=== PATIENT | male | born 1955 | race Caucasian/White ===

== ENCOUNTER 2023-10-08 10:12 | Outpatient (CLI) | payer MEDICARE, OTHER, SELFPAY ==
[2023-10-08 11:10] LABS: Alanine Aminotransferase 48 U/L (6-50); Albumin Level 4.7 g/dL (3.5-5.1); Alkaline Phosphatase 83 U/L (38-126); Anion Gap 9 mmol/L (8-16); Aspartate Amino Transferase 43 U/L (17-59); Bilirubin,Total 0.9 mg/dL (0.2-1.3); Blood Urea Nitrogen 22 mg/dL (9-20); Calcium 9.8 mg/dL (8.4-10.2); Carbon Dioxide 26 mmol/L (22-30); Chloride 104 mmol/L (98-107); Cholesterol 195 mg/dL (0-200); Estimated Glomerular Filt Rate > 60; Glucose 103 mg/dL (65-110); HDL Direct 42 mg/dL; Potassium 3.7 mmol/L (3.4-5.0); Sodium 139 mmol/L (137-145); Triglycerides 209 mg/dL (<150)
[2023-10-08 11:14] LABS: Hemoglobin A1C 5.7 % (<5.7)
[2023-10-08 11:38] LABS: Prostate Specific Antigen 0.4 ng/mL (< OR = 4.0)
[2023-10-08 11:48] LABS: LDL Cholesterol Direct 115 mg/dL
== END 2023-10-08 10:13 | disposition home or self-care (01) ==
PROVIDERS: PCP Family Medicine; Visit Provider Physician Assistant
DX: Z13.1 Encounter for screening for diabetes mellitus (principal); E11.9 Type 2 diabetes mellitus without complications; Z13.220 Encounter for screening for lipoid disorders; Z12.5 Encounter for screening for malignant neoplasm of prostate
CPT/HCPCS: 36415; 80053; 80061; 83036; 84153; G0103

== ENCOUNTER 2023-10-31 07:00 | Outpatient (NON) | payer MEDICARE, OTHER, SELFPAY | END 2023-10-31 07:01 | disposition home or self-care (01) | LOC: ANHLAB 11-01 10:01 | PROVIDERS: PCP Family Medicine; Visit Provider Internal Medicine Gastroenterology | DX: Z12.11 Encounter for screening for malignant neoplasm of colon (principal) | CPT/HCPCS: 88305 ==

== ENCOUNTER 2023-10-31 07:27 | Day surgery (SDC) | payer MEDICARE, OTHER, SELFPAY ==
[2023-10-09 08:40] VITALS: BMI 27.6
[2023-10-18 09:20] VITALS: BMI 27.3
--- NOTE | 2023-10-31 07:38 | P.PNAN_ITS ---
Anes - Initial Pre Proc Eval Procedure: Operation Date: 10/31/23 09:30 Proposed Procedures p Diagnostic Colonoscopy - Ubaldo Fuentes MD Date/Time: 10/31/23 07:38 Surgeon: Ubaldo Fuentes MD Pre Op Diagnosis: Family History of Colon Cancer Patient Data Age: 68 Gender: M Height: 1.8 m Weight: 89 kg Allergies Allergy/AdvReac Type Severity Reaction Status Date / Time No Known Allergies Allergy Verified 10/31/23 08:07 Home Medications Medication Instructions Recorded Confirmed Type lisinopril 20 See Rx Instructions .Route 08/23/22 10/18/23 Rx mg-hydrochlorothiazide 12.5 mg .COMPLEX #180 tabs tablet simvastatin 20 mg tablet See Rx Instructions .Route 08/23/22 10/18/23 Rx .COMPLEX #90 tabs meloxicam 15 mg tablet 15 mg PO DAILY #14 tabs 10/08/23 10/18/23 Rx Patient hx anesthesia problems: none Family hx anesthesia problems: none Results Review: All pre-operative results and documents have been reviewed as part of the pre- operative evaluation. [facility] Past Medical History Medical History (Updated 10/31/23 @ 09:24 by Ubaldo Fuentes MD) Acute pharyngitis (~05/2018) Deviated nasal septum GERD (gastroesophageal reflux disease) Herpes zoster with complication Hypercholesterolemia Hypertension Screening for malignant neoplasm of colon Sore throat (~05/2018) Surgical History Surgical History History of knee surgery Right knee 1981 & Left knee 2006 Family History Family History Father Heart disease Alzheimer disease CHF (congestive heart failure) Mother Carcinoma of colon, Onset Age: 80 Cerebrovascular accident Other Family history of coronary artery disease Social History Social History Smoking status: Never smoker Second hand tobacco smoke exposure: No Alcohol intake: never Substance use: never Substance use type: does not use Lack of Transportation: No Lack of Food: Never True Current Housing: I Have Housing Concerned About Future Housing: No Difficulty Paying Gas/Electric Bills: No Difficulty Paying for Meds: No Currently Unemployed: No Education: High School Diploma/GED Difficulty w/ Childcare or Family Care: No Living arrangements: alone Gender identity (if verbalized by the patient): Male Spiritual care concerns: No Agree to blood products: Yes Anes - Eval Final PreProcedure Day of Procedure 10/31/23 07:38 Patient weight: overweight Heart: regular rate and rhythm Lungs: clear to auscultation Airway: Mallampati scale class II Neurological: alert and oriented Last oral intake: >/= 8 hours ASA classification: II Emergent: no Anesthetic plan: proceed Anesthesia type and monitoring: general GIVS and standard monitoring Results Review: All pre-operative results and documents have been reviewed as part of the pre- operative evaluation. Informed Consent: The patient's anesthetic plan and its attendant risks and benefits were discussed with the patient/family/POA. Questions were solicited and answers provided to the satisfaction of the patient/family/POA.
[2023-10-31 08:16] VITALS: BP 142/112; PULSE 102; RESP 20; TEMP 36.7; O2SAT 99; BMI 27.4
[2023-10-31] MEDS: LACTATED RINGERS 1,000 ML 150 ML IV CONT (08:27)
--- NOTE | 2023-10-31 09:21 | PM.HPGS ---
History of Present Illness History of Present Illness Consent: Risks, benefits, and alternatives have been discussed and questions answered. Patient agrees to proceed with procedure. Chief complaint: Family History of Colon Cancer Narrative: Mil Houser is a 68 year old male presents for screening colonoscopy. Patient's current weight appetite and bowel movements are normal. Patient denies abdominal pain. He has had no bleeding. Family history is significant that his mother was identified as having colon cancer within the last 4 years. Review of Systems Review of Systems: Review of systems noncontributory. [facility] Past Medical History Medical History (Updated 10/31/23 @ 09:24 by Ubaldo Fuentes MD) Acute pharyngitis (~05/2018) Deviated nasal septum GERD (gastroesophageal reflux disease) Herpes zoster with complication Hypercholesterolemia Hypertension Screening for malignant neoplasm of colon Sore throat (~05/2018) Surgical History Surgical History History of knee surgery Right knee 1981 & Left knee 2006 Family History Family History Father Heart disease Alzheimer disease CHF (congestive heart failure) Mother Carcinoma of colon, Onset Age: 80 Cerebrovascular accident Other Family history of coronary artery disease Social History Social History Smoking status: Never smoker Second hand tobacco smoke exposure: No Alcohol intake: never Substance use: never Substance use type: does not use Lack of Transportation: No Lack of Food: Never True Current Housing: I Have Housing Concerned About Future Housing: No Difficulty Paying Gas/Electric Bills: No Difficulty Paying for Meds: No Currently Unemployed: No Education: High School Diploma/GED Difficulty w/ Childcare or Family Care: No Living arrangements: alone Gender identity (if verbalized by the patient): Male Spiritual care concerns: No Agree to blood products: Yes Meds Home Medications and Allergies Home Medications Medication Instructions Recorded Confirmed Type lisinopril 20 See Rx Instructions .Route 08/23/22 10/18/23 Rx mg-hydrochlorothiazide 12.5 mg .COMPLEX #180 tabs tablet simvastatin 20 mg tablet See Rx Instructions .Route 08/23/22 10/18/23 Rx .COMPLEX #90 tabs meloxicam 15 mg tablet 15 mg PO DAILY #14 tabs 10/08/23 10/18/23 Rx Allergies Allergy/AdvReac Type Severity Reaction Status Date / Time No Known Allergies Allergy Verified 10/31/23 08:07 Vital Signs Vital Signs - 24 hr 10/31/23 08:16 Temperature 98.1 F Pulse Rate 102 H Respiratory Rate 20 Blood Pressure 142/112 H Pulse Oximetry 99 Oxygen Delivery Room Air Exam Narrative: Physical exam reveals patient to be alert. Vital signs stable. HEENT exam is unremarkable. Patient is anicteric. Lungs are clear to auscultation and to percussion. Heart is without murmur or extra sounds. Abdomen sounds are present. Abdomen is soft. Nontender with no organomegaly. Digital external rectal exam normal. Assessment and Plan Assessment and plan (1) Family history of colon cancer in mother: Code(s): Z80.0 - Family history of malignant neoplasm of digestive organs Status: Acute Assessment and Plan: Is been identified as having colon cancer. Plan for surveillance colonoscopy at 5 year intervals.
[2023-10-31] MEDS: SIMETHICONE ORAL SUSPENSION 20 MG/0.3 ML 30 ML BOTTLE 0.6 ML IRRIGATION (09:41)
[2023-10-31 09:54] VITALS: BP 106/79; PULSE 88; RESP 20; O2SAT 98
[2023-10-31 10:04] VITALS: BP 104/70; PULSE 81; RESP 18; O2SAT 97
[2023-10-31 10:14] VITALS: BP 107/88; PULSE 76; RESP 20; O2SAT 98
--- NOTE | 2023-10-31 11:11 | WPDANESPN ---
Anes - Prog Note Post-Op Date/Time: 10/31/23 11:11 Cardiovascular status: normal Respiratory status: normal Airway patency: baseline Mental status: baseline Post-Op hydration status: normal Vital Signs: Last Vital Signs Temp 36.7 C 10/31/23 08:16 Pulse 76 10/31/23 10:14 Resp 20 10/31/23 10:14 BP 107/88 10/31/23 10:14 Pulse Ox 98 10/31/23 10:14 O2 Del Method Room Air 10/31/23 10:14 Pain Score (VAS): 0 I/O: Intake & Output 10/30/23 10/31/23 10/31/23 23:59 07:59 15:59 Intake Total 450 Balance 450 Post-procedural complaints: none Patient Feedback: Patient satisfied with anesthetic care. Other Findings: Patient vital signs back to baseline. Patient denies nausea and vomiting. Patient's pain under control. Patient OK for discharge.
== END 2023-10-31 10:21 | disposition home or self-care (01) ==
PROVIDERS: PCP Family Medicine; Referring Provider Physician Assistant; Visit Provider Internal Medicine Gastroenterology
PROC: 0DJD8ZZ Inspection of Lower Intestinal Tract, Via Natural or Artificial Opening Endoscopic (ICD-10-PCS; CPT 45378; principal; 2023-10-31 09:30)
DX: Z80.0 Family history of malignant neoplasm of digestive organs (principal); D12.5 Benign neoplasm of sigmoid colon; K64.8 Other hemorrhoids
CPT/HCPCS: 45385

== ENCOUNTER 2024-10-12 10:34 | Outpatient (CLI) | payer MEDICARE, OTHER, SELFPAY ==
[2024-10-12 17:02] LABS: Hemoglobin A1C 5.5 % (<5.7)
[2024-10-12 18:49] LABS: Alanine Aminotransferase 28 U/L (6-50); Albumin Level 4.7 g/dL (3.5-5.1); Alkaline Phosphatase 80 U/L (38-126); Anion Gap 13 mmol/L (4-12); Aspartate Amino Transferase 32 U/L (17-59); Blood Urea Nitrogen 16 mg/dL (9-20); Calcium 9.7 mg/dL (8.4-10.2); Carbon Dioxide 27 mmol/L (22-30); Chloride 100 mmol/L (98-107); Cholesterol 174 mg/dL (0-200); Estimated Glomerular Filt Rate > 60; Glucose 105 mg/dL (65-110); HDL Direct 44 mg/dL; Sodium 140 mmol/L (137-145); Triglycerides 97 mg/dL (<150)
[2024-10-12 19:01] LABS: LDL Cholesterol Direct 103 mg/dL
[2024-10-12 19:21] LABS: Prostate Specific Antigen 0.4 ng/mL (< OR = 4.0)
== END 2024-10-12 10:35 | disposition home or self-care (01) ==
LOC: ANHLAB 10:36
PROVIDERS: PCP Family Medicine; Visit Provider Student in an Organized Health Care Education/Training Program
DX: Z12.5 Encounter for screening for malignant neoplasm of prostate (principal); I10 Essential (primary) hypertension; E78.00 Pure hypercholesterolemia, unspecified; Z13.1 Encounter for screening for diabetes mellitus
CPT/HCPCS: 36415; 80053; 80061; 83036; 84153; G0103

== ENCOUNTER 2025-05-26 09:25 | Outpatient (CLI) | payer MEDICARE, OTHER, SELFPAY ==
--- NOTE | 2025-05-26 10:04 | ECG_ITS ---
Test Date: 2025-05-26 10:40:49 Measurements Intervals [place] Rate: 75 P: 19 [place]: 153 QRS: 10 QRSD: 97 T: 32 QT: 378 QTc: 424 Interpretive Statements SINUS RHYTHM NORMAL ECG No previous ECG available for comparison Electronically Signed On 05-26-2025 10:44:50 CDT by Gabriele Lynn D.O.
[2025-05-26 10:12] LABS: Hematocrit 49.4 % (42.0-52.0); Hemoglobin 16.9 g/dL (14.0-18.0); Immature Granulocyte Percent A 0.3 % (0-0.5); Immature Platelet Fraction Pct 3.8 % (0.9-11.2); Lymphocytes Absolute Auto 1.90 K/mm3 (0.9-3.2); Mean Corpuscular HGB Conc 34.2 g/dl (32-36); Mean Corpuscular Hemoglobin 31.0 pg (26-34); Mean Corpuscular Volume 90.5 fl (80-100); Nucleated Red Blood Cells Absolute Auto 0.000 K/mm3 (0.0-0.012); Nucleated Red Blood Cells Perc 0.0 % (0.0-0.2); Platelet Count Result 113 k/mm3 (150-375); Red Blood Count 5.46 M/mm3 (4.6-6.20); White Blood Count 8.0 K/mm3 (4.5-10.0)
[2025-05-26 10:34] LABS: Alanine Aminotransferase 32 U/L (6-50); Albumin Level 4.7 g/dL (3.5-5.1); Alkaline Phosphatase 76 U/L (38-126); Anion Gap 10 mmol/L (4-12); Aspartate Amino Transferase 35 U/L (17-59); Bilirubin,Total 1.1 mg/dL (0.2-1.3); Blood Urea Nitrogen 18 mg/dL (9-20); Calcium 9.7 mg/dL (8.4-10.2); Carbon Dioxide 26 mmol/L (22-30); Chloride 101 mmol/L (98-107); Cholesterol 172 mg/dL (0-200); Estimated Glomerular Filt Rate > 60; Glucose 102 mg/dL (65-110); HDL Direct 48 mg/dL; Potassium 3.8 mmol/L (3.4-5.0); Sodium 137 mmol/L (137-145); Total Protein 7.7 g/dL (6.3-8.2); Triglycerides 129 mg/dL (<150)
--- OUTSIDE RECORDS SUMMARY | 2025-05-26 10:40 | XMS_ITS | Clinical Summary ---
Author Organization [facility] [address] Address [address] [place] [address] Care Team Providers Care Pomologist Name Role Phone Maikel Woods MD Primary Care Provider [phone] Allergies No known active allergies Medications aspirin 81 mg chewable tablet Take 81 mg by mouth daily. Active lisinopril-hydro CHLOROthiazide (PRINZIDE,ZESTOR ETIC) 20-12.5 mg per tabletIndication s:hypertension Take 1 tablet by mouth daily. Active simvastatin (ZOCOR) 20 mg tablet Take 20 mg by mouth nightly. Active Active Problems Problem Noted Date Diagnosed Date Dyslipidemia Medical History Medical History Date Comments Dyslipidemia Hypertension Family History Medical History Relation Name Comments Hypertension Mother Relation Name Status Comments Brother Alive Father Alive bypass triple, and valve replacement Mother Alive Sister Alive Social History Tobacco Use Types Packs/Day Years Used Date Smoking Tobacco: Never Smokeless Tobacco: Never Tobacco Cessation:Counseling Given: No Alcohol Use Standard Drinks/Week Comments No 0 (1 standard drink = 0.6 oz pur e alcohol) Personal Safety Answer Date Recorded Getting School Help Needed Not on file 10/26 Sex and Gender Information Value Date Recorded Sex Assigned at Not on file Legal Sex Male 3:27 PM CDT Gender Identity Not on file Sexual Orientation Not on file Obstetrics History Last Filed Vital Signs Vital Sign Reading Time Taken Comments Blood Pressure 138/88 07/03/2017 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 SPECIALIST Pulse 88 07/03/2017 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 SPECIALIST Temperature - - Respiratory Rate 12 02/27/2017 10:46 AM CDT Oxygen Saturation 99% 07/03/2017 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 SPECIALIST Inhaled Oxygen Concentration - - Weight 88 kg (193 lb 14.4 oz) 07/03/2017 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 SPECIALIST Height 180.3 cm (5' 11) 07/03/2017 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 SPECIALIST Body Mass Index 27.04 07/03/2017 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 SPECIALIST Plan of Treatment Health Maintenance Due Date Last Done Comments Colon Cancer Screening-Colonoscopy 1955 Depression Screening 1955 Fall Risk Assessment 1955 Hepatitis C Screening 1955 Prostate Cancer Screening-PSA 1955 Pneumococcal vaccine 65+ (1 of 1 - PCV) 2007 Zoster Vaccine (1 of 2) 2007 Abdominal Aortic Aneurysm (A AA) Screen 2022 Well Visit 65+ 2022 Covid-19 Vaccine (3 - 2024-2 6 season) 2025 02/11/2021, 01/21/2021 Influenza Vaccine (#1) 2025 , 06/01/2022, 05/22/2021, Additional history exists DTaP/Tdap/Td Vaccine (2 - Td or Tdap) 09/20/2031 09/20/2021, 08/12/2008 Hepatitis B Screening Completed 04/30/2014, 014 Insurance [place] LIFE Care Teams Pomologist Relationship Specialty Start Date End Date Maikel Woods MD [address] [place] [address] PCP - General 01/03/17
== END 2025-05-26 09:26 | disposition home or self-care (01) ==
PROVIDERS: PCP Family Medicine Adolescent Medicine; Visit Provider Student in an Organized Health Care Education/Training Program
DX: R00.2 Palpitations (principal); I10 Essential (primary) hypertension; E78.00 Pure hypercholesterolemia, unspecified
CPT/HCPCS: 36415; 80053; 80061; 85025; 85055; 93005

== ENCOUNTER 2025-06-01 10:46 | Outpatient (CLI) | payer MEDICARE, OTHER, SELFPAY ==
[2025-06-01 11:15] LABS: Hematocrit 48.3 % (42.0-52.0); Hemoglobin 16.5 g/dL (14.0-18.0); Immature Granulocyte Percent A 0.5 % (0-0.5); Immature Platelet Fraction Pct 4.4 % (0.9-11.2); Lymphocytes Absolute Auto 1.94 K/mm3 (0.9-3.2); Mean Corpuscular HGB Conc 34.2 g/dl (32-36); Mean Corpuscular Hemoglobin 31.0 pg (26-34); Mean Corpuscular Volume 90.8 fl (80-100); Nucleated Red Blood Cells Absolute Auto 0.000 K/mm3 (0.0-0.012); Nucleated Red Blood Cells Perc 0.0 % (0.0-0.2); Platelet Count Result 106 k/mm3 (150-375); Red Blood Count 5.32 M/mm3 (4.6-6.20); White Blood Count 8.4 K/mm3 (4.5-10.0)
[2025-06-01 11:34] LABS: Iron 133 ug/dL (49-181)
[2025-06-01 11:44] LABS: Percent Iron Saturation 38 % (20-50)
[2025-06-01 12:15] LABS: Ferritin 72.70 ng/mL (11.1-264)
[2025-06-01 12:38] LABS: Vitamin B12 787.0 pg/mL (239-931)
== END 2025-06-01 10:47 | disposition home or self-care (01) ==
PROVIDERS: PCP Family Medicine Adolescent Medicine; Visit Provider Student in an Organized Health Care Education/Training Program
DX: D69.6 Thrombocytopenia, unspecified (principal)
CPT/HCPCS: 36415; 82607; 82728; 82746; 83540; 83550; 85025; 85055

== ENCOUNTER 2025-06-04 09:44 | Outpatient (CLI) | payer MEDICARE, OTHER, SELFPAY ==
--- OUTSIDE RECORDS SUMMARY | 2025-06-04 10:02 | XMS_ITS | Clinical Summary ---
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 FEEDER Pulse 88 07/03/2017 8:40 AM CATTLE FEEDER Temperature - - Respiratory Rate 12 02/27/2017 10:46 AM CDT Oxygen Saturation 99% 07/03/2017 8:40 AM CATTLE FEEDER Inhaled Oxygen Concentration - - Weight 88 kg (193 lb 14.4 oz) 07/03/2017 8:40 AM CATTLE FEEDER Height 180.3 cm (5' 11) 07/03/2017 8:40 AM CATTLE FEEDER Body Mass Index 27.04 07/03/2017 8:40 AM CATTLE FEEDER Plan of Treatment Health Maintenance Due Date [...] Hepatitis B Screening Completed 04/30/2014, 014 Insurance [employer] [place] MEDICARE FOR LIFE Care Teams Boot Maker Relationship Specialty Start Date End Date Maikel Woods MD [address] [place] [address] PCP - General 01/03/17
--- NOTE | 2025-06-11 13:48 | WPDHOLTEREM ---
Holter/Event Monitor Holter/Event Monitor Date of procedure: 06/04/25 Holter/Event Procedure: 3-7 Day Holter Monitor Indications: Palpitations Conclusion: 1. 3 days holter monitor on 06/04/25. 2. Predominant rhythm is sinus rhythm. HR range 49-176 bpm; average HR 73 bpm. 3. There are rare premature supraventricular complexes, rare supraventricular couplets, and rare supraventricular triplets. There is 1 episode of supraventricular tachycardia at 156 bpm lasting 9 beats. 4. There are occasional premature ventricular complexes, rare ventricular couplets, and rare ventricular triplets, longest ventricular bigeminy was 11.4 seconds, ang longest ventricular trigeminy was 19.4 seconds. There is 1 episode of ventricular tachycardia at 176 bpm lasting 18 beats. 5. No significant pauses greater than 3 seconds. 6. Patient reports 4 episodes of symptoms of anxious, lightheadedness, headache, fatigue, irregular beats which demonstrate sinus rhythm, HR range 82-98 bpm with 3 episodes with PVC's.
== END 2025-06-04 09:45 | disposition home or self-care (01) ==
PROVIDERS: PCP Family Medicine Adolescent Medicine; Visit Provider Student in an Organized Health Care Education/Training Program
DX: I49.1 Atrial premature depolarization (principal); R00.8 Other abnormalities of heart beat; I47.20 Ventricular tachycardia, unspecified; I10 Essential (primary) hypertension; R51.9 Headache, unspecified
CPT/HCPCS: 93242

== ENCOUNTER 2025-07-22 09:16 | Outpatient (CLI) | payer MEDICARE, OTHER, SELFPAY ==
--- NOTE | 2025-07-22 09:25 | EST_ITS ---
Patient Info Name: Mil Houser Age: 69 years : 1955 Gender: Male Ht: 70 in Wt: 189 lbs BSA: 2.07 m2 HR: 70 bpm BP: 152 / 99 mmHg Exam Date: 07/22/2025 9:25 AM Patient Status: O Admit Date: 07/22/2025 Exam Type: CA stress test treadmill A treadmill exercise stress test was performed. Staff Attending Provider: Gabriele Lynn DO Exercise Technologist: Selina Dickens Exercise Physician: Gabriele Lynn DO Summary 1. 1. Negative [place] exercise stress test for ischemic ST changes by ECG criteria. 2. 2. Reduced functional capacity, achieving 7 METs of workload. 3. 3. Baseline hypertension. 4. 4. Appropriate HR response to exercise. 5. 5. Appropriate HR recovery at 1 minute post exercise. 6. 6. No imaging with stress testing. 7. 7. Patient informed of the above results. Protocol: [place] Stress ECG Details Stage: REST Duration (min): 1 min : 46 sec Speed (mph): 0.0 Grade (%): 0 HR (bpm): 71 SBP (mmHg): 152 DBP (mmHg): 99 METS: --- Stage: REST Duration (min): 11 min : 34 sec Speed (mph): 0.0 Grade (%): 0 HR (bpm): 93 SBP (mmHg): 152 DBP (mmHg): 99 METS: --- Stage: STAGE 1 Duration (min): 1 min : 0 sec Speed (mph): 1.7 Grade (%): 10 HR (bpm): 109 SBP (mmHg): 152 DBP (mmHg): 99 METS: --- Stage: STAGE 1 Duration (min): 2 min : 0 sec Speed (mph): 1.7 Grade (%): 10 HR (bpm): 116 SBP (mmHg): 152 DBP (mmHg): 99 METS: --- Stage: STAGE 1 Duration (min): 3 min : 0 sec Speed (mph): 1.7 Grade (%): 10 HR (bpm): 123 SBP (mmHg): 193 DBP (mmHg): 104 METS: --- Stage: STAGE 2 Duration (min): 1 min : 0 sec Speed (mph): 2.5 Grade (%): 12 HR (bpm): 136 SBP (mmHg): 193 DBP (mmHg): 104 METS: --- Stage: STAGE 2 Duration (min): 2 min : 0 sec Speed (mph): 2.5 Grade (%): 12 HR (bpm): 147 SBP (mmHg): 202 DBP (mmHg): 103 METS: --- Stage: STAGE 2 Duration (min): 2 min : 0 sec Speed (mph): 2.5 Grade (%): 12 HR (bpm): 148 SBP (mmHg): 202 DBP (mmHg): 103 METS: --- Stage: RECOVERY Duration (min): 0 min : 59 sec Speed (mph): 0.0 Grade (%): 0 HR (bpm): 129 SBP (mmHg): 202 DBP (mmHg): 103 METS: --- Stage: RECOVERY Duration (min): 1 min : 59 sec Speed (mph): 0.0 Grade (%): 0 HR (bpm): 112 SBP (mmHg): 202 DBP (mmHg): 103 METS: --- Stage: RECOVERY Duration (min): 2 min : 59 sec Speed (mph): 0.0 Grade (%): 0 HR (bpm): 101 SBP (mmHg): 190 DBP (mmHg): 102 METS: --- Stage: RECOVERY Duration (min): 3 min : 59 sec Speed (mph): 0.0 Grade (%): 0 HR (bpm): 96 SBP (mmHg): 190 DBP (mmHg): 102 METS: --- Stage: RECOVERY Duration (min): 4 min : 59 sec Speed (mph): 0.0 Grade (%): 0 HR (bpm): 93 SBP (mmHg): 165 DBP (mmHg): 101 METS: --- Stage: RECOVERY Duration (min): 5 min : 59 sec Speed (mph): 0.0 Grade (%): 0 HR (bpm): 100 SBP (mmHg): 165 DBP (mmHg): 101 METS: --- Stage: RECOVERY Duration (min): 6 min : 59 sec Speed (mph): 0.0 Grade (%): 0 HR (bpm): 99 SBP (mmHg): 160 DBP (mmHg): 104 METS: --- Stage: RECOVERY Duration (min): 7 min : 24 sec Speed (mph): 0.0 Grade (%): 0 HR (bpm): 91 SBP (mmHg): 160 DBP (mmHg): 104 METS: --- Rest HR: 93 bpm Peak HR: 147 bpm Rest Sys BP: 152 mmHg Peak Sys BP: 202 mmHg Max Pred HR: 153 bpm % Max Pred HR: 96 % Target HR: 130 bpm Max RPP: 29,694 bpm*mmHg [place] Score: -1 Termination Reason: Reached target heart rate or workload Cardiac Symptoms: Shortness of breath Max ST Seg Deviation: -1.20 mm Total Time: 5 min : 0 sec Rest Reyes BP: 99 mmHg Peak Reyes BP: 103 mmHg Angina Score: None Total METS: 7.1 Resting ECG Sinus rhythm with PVC's. Stress ECG No ST changes. Arrhythmias PVC's. Report Signatures
--- NOTE | 2025-07-22 09:25 | ECHO_ITS ---
Patient Info Name: Mil Houser Age: 69 years : 1955 Gender: Male Ht: 70 in Wt: 189 lbs BSA: 2.07 m2 HR: 70 bpm BP: 150 / 94 mmHg Technical Quality: Good Exam Date: 07/22/2025 9:50 AM Patient Status: O Admit Date: 07/22/2025 Exam Type: CA echo doppler color flow Complete two-dimensional, color flow and Doppler transthoracic echocardiogram is performed. Vet Tech: Radha Barrera Attending Provider: Gabriele Lynn DO Summary 1. Complete two-dimensional, color flow and Doppler transthoracic echocardiogram is performed. 2. Left ventricular chamber dimension is normal. 3. Left ventricular systolic function is normal, estimated at 55-60. 4. There is mild concentric increased left ventricular wall thickness. 5. The left ventricular diastolic function is grade I diastolic dysfunction. 6. Left atrial chamber dimension is mildly enlarged. 7. There is trace tricuspid valve regurgitation. 8. Mild pulmonary hypertension, estimated pulmonary arterial systolic pressure is 45 mmHg. Left Ventricle Tissue doppler was not performed. Left ventricular chamber dimension is normal. Left ventricular systolic function is normal, estimated at 55-60. There is mild concentric increased left ventricular wall thickness. The left ventricular diastolic function is grade I diastolic dysfunction. Right Ventricle Right ventricular chamber dimension is normal. Right ventricular systolic function is normal and with normal TAPSE 3.0 cm. Left Atria Left atrial chamber dimension is mildly enlarged. Right Atria Right atrial chamber dimension is normal. Aortic Valve The aortic valve is trileaflet. There is no aortic valve stenosis. There is no aortic valve regurgitation. Pulmonic Valve There is no pulmonic regurgitation. Mitral Valve There is no mitral valve stenosis. There is no mitral valve regurgitation. Tricuspid Valve There is trace tricuspid valve regurgitation. Mild pulmonary hypertension, estimated pulmonary arterial systolic pressure is 45 mmHg. Pericardium/Pleural There is no pericardial effusion. Inferior Vena Cava Normal inferior vena cava with >50% collapse upon inspiration consistent with normal right atrial pressure, 5 mmHg. Aorta The aortic root size at the sinus of Valsalva is normal. Left Ventricular Outflow Tract Name Value Normal LVOT 2D LVOT Diameter 2.2 cm LVOT Doppler LVOT Peak Velocity 94 cm/s LVOT Peak Gradient 4 mmHg LVOT Mean Gradient 2 mmHg LVOT VTI 20 cm LVOT VTI/AV VTI Ratio 0.8 LVOT Stroke Volume 76 ml LVOT CO 5.8 l/min LVOT CI 2.8 l/min/m2 Pulmonic Valve Name Value Normal RVOT Doppler RVOT Peak Velocity 64 cm/s RVOT Peak Gradient 2 mmHg PV Doppler PV Peak Velocity 92 cm/s PV Peak Gradient 3 mmHg Mitral Valve Name Value Normal MV Diastolic Function MV E Peak Velocity 88 cm/s MV A Peak Velocity 103 cm/s MV E/A 0.9 MV Decel Time (PW) 136 ms Tricuspid Valve Name Value Normal TV Regurgitation Doppler TR Peak Velocity 316 cm/s TR Peak Gradient 26 mmHg Estimated PAP/RSVP RA Pressure 5 mmHg <=5 PA Systolic Pressure 45 mmHg <36 RV Systolic Pressure 45 mmHg <36 TV Annular TDI TV Lateral Corina s' Velocity 15.4 cm/s >=9.5 Aorta Name Value Normal Ascending Aorta Ao Root Diameter (MM) 3.5 cm Ao Root Diam Index (MM) 1.7 cm/m2 Aortic Valve Name Value Normal AV Doppler AV Peak Velocity 117 cm/s AV Peak Gradient 5 mmHg AV Mean Gradient 3 mmHg AV VTI 25 cm AV Area (Cont Eq VTI) 3.1 cm2 >=3.0 AV Area (Cont Eq Danish) 3.0 cm2 AV DI (Danish) 0.80 AV Regurgitation 2D LVOT Area 3.7 cm2 Ventricles Name Value Normal LV Dimensions 2D/MM IVS Diastolic Thickness (2D) 1.0 cm 0.6-1.0 IVS Diastole Thickness (MM) 1.0 cm 0.6-1.0 LVID Diastole (2D) 5.4 cm 4.2-5.8 LVID Diastole (MM) 5.8 cm 4.2-5.8 LVIW Diastolic Thickness (2D) 1.2 cm 0.6-1.0 LVIW Diastolic Thickness (MM) 1.0 cm 0.6-1.0 LVID Systole (2D) 3.7 cm 2.5-4.0 LVID Systole (MM) 3.9 cm 2.5-4.0 LVOT Diameter 2.2 cm LV Mass (2D Cubed) 230.11 g 88.00-224.00 LV Mass Index (2D Cubed) 111 g/m2 49-115 Relative Wall Thickness (2D) 0.45 <=0.42 LV Mass (MM Cubed) 233.07 g 88.00-224.00 LV Mass Index (MM Cubed) 112 g/m2 49-115 Relative Wall Thickness (MM) 0.35 LV Fractional Shortening/Ejection Fraction 2D/MM LV Fractional Shortening (2D) 32 % 25-43 LV Fractional Shortening (MM) 33 % 25-43 LV EF (MM Teichholz) 60 % LV EF (2D Teichholz) 60 % LV Diastolic Volume (4C MOD) 135 ml LV EF (4C MOD) 73 % LV Diastolic Volume (2C MOD) 121 ml LV EF (2C MOD) 55 % LV Diastolic Volume (BP MOD) 128 ml 62-150 LV Diastolic Volume Index (BP MOD) 62 ml/m2 34-74 LV Systolic Volume (BP MOD) 47 ml 21-61 LV Systolic Volume Index (BP MOD) 23 ml/m2 11-31 LV EF (BP MOD) 63 % 52-72 LV Diastolic Length (4C) 8.5 cm LV Systolic Length (4C) 6.4 cm LV Stroke Volume (4C MOD) 98 ml Atria Name Value Normal LA Dimensions LA Dimension (MM) 3.7 cm 3.0-4.0 LA Volume (4C A-L) 31 ml LA Volume (BP A-L) 38 ml RA Dimensions RA Systolic Major [place] Length (4C) 4.9 cm 2.1-2.7 RA Area (4C) 14.3 cm2 <=18.0 Report Signatures
== END 2025-07-22 09:17 | disposition home or self-care (01) ==
PROVIDERS: PCP Family Medicine Adolescent Medicine; Visit Provider Internal Medicine Cardiovascular Disease
DX: I47.20 Ventricular tachycardia, unspecified (principal); I27.20 Pulmonary hypertension, unspecified
CPT/HCPCS: 93017; 93306